=== PATIENT | male | born 1980 | race Hispanic/Latino ===

== ENCOUNTER 2019-01-27 14:53 | Emergency (ER) | payer OTHER, SELFPAY ==
[2019-01-27 14:57] VITALS: BP 127/80; PULSE 59; RESP 14; TEMP 36.6; O2SAT 99
--- NOTE | 2019-01-27 15:00 | DI.RAD.S_ITS ---
PROCEDURE: XR ELBOW RT MIN 3V INDICATIONS: pain after twisting motion. TECHNIQUE: 3 views of the elbow were acquired. COMPARISON: None. FINDINGS: Bones: No fractures or dislocations. No suspicious bony lesions. Lacunes bone spur. Soft tissues: No elbow joint effusion. No suspicious soft tissue calcifications. IMPRESSION: No fracture. No acute osseous lesion. If symptoms and/or clinical suspicion for pathology persists, further assessment with repeat radiographs (7-10 days) or advanced imaging (e.g. CT, MRI or bone scan) may be helpful. Dictated by: Minoo Cardoza MD, PhD on 01/27/2019 at 15:14 Approved by: Minoo Cardoza MD, PhD on 01/27/2019 at 15:16
[2019-01-27] MEDS: KETOROLAC 60 MG/2 ML VIAL 30 MG IM (18:04)
[2019-01-27 18:14] VITALS: BP 116/78; PULSE 77; RESP 16; O2SAT 97
--- NOTE | 2019-01-27 18:29 | ED_ITS ---
HPI - Extremity Injury (Upper) <JESSICA Ayala - Last Filed: 01/27/19 18:33> General Chief Complaint: Extremity Injury, Upper Stated Complaint: RIGHT ELBOW ARM INJURY Time Seen by Provider: 01/27/19 17:15 Source: patient Mode of arrival: Ambulatory Limitations: no limitations History of Present Illness HPI narrative: The patient is a 38-year-old male former smoker who denies pertinent medical history presents the chief complaint of right elbow pain after twisting motion. He took Tylenol this morning. He denies any falls or impacts or other trauma. He denies any previous injury to his elbow. He has not seen his PCP. He states that the pain started at 1:00 a.m.. He has not applied ice or taken Motrin Related Data Home Medications Medication Instructions Recorded Confirmed No Known Home Medications 01/27/19 01/27/19 Previous Rx's Medication Instructions Recorded ketorolac 10 mg PO TID PRN #14 tab 01/27/19 Allergies Allergy/AdvReac Type Severity Reaction Status Date / Time No Known Drug Allergies Allergy Verified 01/27/19 15:00 Review of Systems <JESSICA Ayaal - Last Filed: 01/27/19 18:33> Review of Systems Narrative: GENERAL: Denies chills, fatigue, malaise, fever, sweats. HEENT: Denies sinus pain, ear pain, sore throat, difficulty swallowing, dizziness. RESPIRATORY: Denies dyspnea, cough, wheezing, hemoptysis, sputum. CARDIOVASCULAR: Denies chest pain, palpitations, orthopnea, edema, GASTROINTESTINAL: Denies nausea, vomiting, abdominal pain, diarrhea, constipation, melena. : Denies dysuria, frequency, incontinence, hematuria, urinary retention. MUSCULOSKELETAL: See HPI SKIN: Denies rash, skin lesions, or other NEUROLOGIC: Denies weakness, headache, numbness, change in speech, confusion, seizures, incoordination. PSYCHIATRIC: No concerning psychosocial issues. 12 point review of systems is negative except for those stated above Patient History <JESSICA Ayala - Last Filed: 01/27/19 18:33> Social History Smoking Status: Former smoker Smoking Status: Former smoker alcohol intake frequency: 0-2 drinks per day Substance Use Type: marijuana Exam <JESSICA Ayala - Last Filed: 01/27/19 18:33> Narrative Exam Narrative: GENERAL: This is a well-nourished, well-developed patient, in no acute distress HEAD: Atraumatic. Normocephalic. No temporal or scalp tenderness. EYES: Pupils equal round and reactive. Extraocular motions intact. No scleral icterus. No injection or drainage. ENT: Nose without bleeding, purulent drainage or septal hematoma. Throat without erythema, tonsillar hypertrophy or exudate. Uvula midline. Airway patent. NECK: Trachea midline. No JVD or lymphadenopathy. Supple, nontender, no meningeal signs. CARDIOVASCULAR: Regular rate and rhythm RESPIRATORY: No cough. No increased respiratory effort. No accessory muscle use. EXTREMITIES: Able to fully flex and extend right elbow. Able to pronate and supinate right arm. Positive radial pulse. Cap refill less than 2 seconds all fingers right arm. BACK: Nontender without deformity or crepitance. No flank tenderness. NEURO: AOx3. SKIN: No erythema ecchymosis laceration or abrasion noted right arm Initial Vital Signs Initial Vital Signs: Vital Signs Temperature 97.9 F 01/27/19 14:57 Pulse Rate 59 L 01/27/19 14:57 Respiratory Rate 14 01/27/19 14:57 Blood Pressure 127/80 01/27/19 14:57 Pulse Oximetry 99 01/27/19 14:57 <Maggy Ragland DO - Last Filed: 01/29/19 07:15> Initial Vital Signs Initial Vital Signs: Vital Signs Temperature 97.9 F 01/27/19 14:57 Pulse Rate 59 L 01/27/19 14:57 Respiratory Rate 14 01/27/19 14:57 Blood Pressure 127/80 01/27/19 14:57 Pulse Oximetry 99 01/27/19 14:57 Course <JESSICA Ayala - Last Filed: 01/27/19 18:33> Orders Ordered: Discontinued Medications Ketorolac Tromethamine (Toradol) 30 mg IM NOW ONE Stop: 01/27/19 17:50 Last Admin: 01/27/19 18:04 Dose: 30 mg Documented by: MAXIMILIANO Vital Signs Vital signs: Vital Signs - 8 hr 01/27/19 14:57 01/27/19 18:14 Temperature 97.9 F Pulse Rate 59 L 77 Respiratory Rate 14 16 Blood Pressure 127/80 116/78 Pulse Oximetry 99 97 <Maggy Ragland DO - Last Filed: 01/29/19 07:15> Orders Ordered: Discontinued Medications Ketorolac Tromethamine (Toradol) 30 mg IM NOW ONE Stop: 01/27/19 17:50 Last Admin: 01/27/19 18:04 Dose: 30 mg Documented by: MAXIMILIANO Vital Signs Vital signs: Vital Signs - 8 hr 01/27/19 14:57 01/27/19 18:14 Temperature 97.9 F Pulse Rate 59 L 77 Respiratory Rate 14 16 Blood Pressure 127/80 116/78 Pulse Oximetry 99 97 MDM - Extremity Injury (Upper) <JESSICA Ayala - Last Filed: 01/27/19 18:33> Imaging Data Extremity x-ray #1: Radiologist's Impression: Antoni Garcia 38 M 1980 [place] [address] XRay Report Signed Patient: Antoni GarciaMR#: [id number] : 1980Acct:[id number] Age/Sex: 38 / MDate of Service: 01/27/19 Loc: ED Accession Number: [id number] Procedure: XR elbow RT min 3V Ordering Provider: Maggy Ragland D.O. PROCEDURE: XR ELBOW RT MIN 3V INDICATIONS: pain after twisting motion. TECHNIQUE: 3 views of the elbow were acquired. COMPARISON: None. FINDINGS: Bones: No fractures or dislocations. No suspicious bony lesions. Lacunes bone spur. Soft tissues: No elbow joint effusion. No suspicious soft tissue calcifications. IMPRESSION: No fracture. No acute osseous lesion. If symptoms and/or clinical suspicion for pathology persists, further assessment with repeat radiographs (7-10 days) or advanced imaging (e.g. CT, MRI or bone scan) may be helpful. Dictated by: Minoo Cardoza MD, PhD on 01/27/2019 at 15:14 Approved by: Minoo Cardoza MD, PhD on 01/27/2019 at 15:16 MDM Narrative Medical decision making narrative: The patient is a 38-year-old male who pr esents with a chief complaint of elbow pain. He has no obvious fracture on x- ray. He is neurovascularly intact. His exam is consistent with a strain or sprain. I discussed at length rest ice compression elevation as well as [id number] pain medications as needed and able. Was given a prescription of Toradol, strict instructions to not take it with any other NSAIDs. Encourage PCP follow-up in the next few days. Patient has no questions or concerns upon discharge and states understanding of return precautions as well as follow-up care. Discharge Plan Departure Patient Disposition: Home Clinical Impression: Elbow pain, right Sprain of elbow, right Qualifiers: Encounter type: initial encounter Qualified Code(s): S53.401A - Unspecified sprain of right elbow, initial encounter Discharge Date/Time: 01/27/19 18:14 Instructions: How To Perform RICE (Rest, Ice, Compress, Elevate), DI for Elbow Sprain, DI for Elbow Pain Activity Restrictions/Additional Instructions: As I discussed, your x-ray shows no acute fracture. This does not rule out a soft tissue injury such as a ligament or tendon injury. It is important that you follow up with primary care provider, especially if worsening or no i mprovement. There can be fractures that did not show up on initial x-ray. I have given you a prescription of Toradol. This is an NSAID. Do not combine it with other NSAIDs such as Aleve or ibuprofen. I suggest taking it with some food, as it can irritate your stomach. I've given you a work note for light duty for 1 week Please follow-up with primary care provider in the next few days. Please come back to the emergency department for any acute concerns. Prescriptions: New ketorolac 10 mg tablet 10 mg PO TID PRN (Reason: pain) Qty: 14 RF: 0 No Action No Known Home Medications RF: 0 Referrals: [facility] [Outside] Stand Alone Forms: Work Release Note
== END 2019-01-27 18:14 | disposition home or self-care (01) ==
PROVIDERS: Emergency Provider Nurse Practitioner Family
DX: S53.401A Unspecified sprain of right elbow, initial encounter (principal); X50.1XXA Overexertion from prolonged static or awkward postures, initial encounter; Y99.0 Civilian activity done for income or pay
CPT/HCPCS: 73080; 96372; 99282; 99283; J1885